=== PATIENT | male | born 1965 | race Two or more races ===

== ENCOUNTER 2020-01-20 12:37 | Outpatient (CLI) | payer OTHER | END 2020-01-20 12:38 | disposition home or self-care (01) | LOC: RAD 12:37 | PROVIDERS: ATTEND Orthopaedic Surgery | DX: M25.552 Pain in left hip (principal) ==

== ENCOUNTER 2020-01-20 13:14 | Outpatient (CLI) | payer OTHER | END 2020-01-20 13:41 | disposition home or self-care (01) | LOC: LAB 13:14 | DX: N20.0 Calculus of kidney (principal) ==

== ENCOUNTER 2020-01-20 15:12 | Inpatient (IN) | payer OTHER ==
[~2020-01-20] VITALS: Ht 177.8 cm; Wt 98.0 kg
[2020-01-27] MEDS ORDERED: HYDROCHLOROTH12.5 MG PO (10:40)
[2020-01-27] MEDS ORDERED: ATACAND16 MG PO (10:40)
[2020-01-27] MEDS ORDERED: TOPROL XL25 M1 PO (10:40)
[2020-01-27] MEDS ORDERED: CABERGOLINE0.5 MG PO (10:41)
[2020-01-27] MEDS ORDERED: TESTOSTERONE IM (10:43)
[2020-02-05] MEDS ORDERED: PROTONIX40 MG PO (14:04)
[2020-02-09] MEDS ORDERED: XARELTO10 M1 (15:16)
== END 2020-02-11 10:56 | DRG 470 ==
LOC: SURH 02-09 07:00 → O/R 02-09 11:07 → SURG 02-09 11:07
PROVIDERS: ADMIT Orthopaedic Surgery; ATTEND Orthopaedic Surgery
PROC: 0SRB0JZ Replacement of Left Hip Joint with Synthetic Substitute, Open Approach (ICD-10-PCS; principal; 2020-02-09 07:00)
DX: M16.12 Unilateral primary osteoarthritis, left hip (principal); D62 Acute posthemorrhagic anemia; I10 Essential (primary) hypertension

== ENCOUNTER 2020-01-22 07:39 | Outpatient (CLI) | payer OTHER | END 2020-01-22 07:52 | disposition home or self-care (01) | LOC: TOM 07:39 | PROVIDERS: ATTEND Internal Medicine Gastroenterology | DX: R10.84 Generalized abdominal pain (principal); M16.12 Unilateral primary osteoarthritis, left hip ==

== ENCOUNTER 2020-01-23 07:20 | Outpatient (CLI) | payer OTHER | END 2020-01-23 07:33 | disposition home or self-care (01) | LOC: LAB 07:20 | PROVIDERS: ATTEND Orthopaedic Surgery | DX: R10.84 Generalized abdominal pain (principal); E03.8 Other specified hypothyroidism; E78.49 Other hyperlipidemia; K92.1 Melena; D64.89 Other specified anemias; E88.89 Other specified metabolic disorders; D68.8 Other specified coagulation defects; N39.0 Urinary tract infection, site not specified; Z22.322 Carrier or suspected carrier of Methicillin resistant Staphylococcus aureus; E55.9 Vitamin D deficiency, unspecified ==

== ENCOUNTER 2020-01-27 07:50 | Outpatient (CLI) | payer OTHER ==
[2020-01-27] MEDS ORDERED: HYDROCHLOROTH12.5 MG PO (10:40)
[2020-01-27] MEDS ORDERED: TOPROL XL25 M1 PO (10:40)
[2020-01-27] MEDS ORDERED: ATACAND16 MG PO (10:40)
[2020-01-27] MEDS ORDERED: CABERGOLINE0.5 MG PO (10:41)
[2020-01-27] MEDS ORDERED: TESTOSTERONE IM (10:43)
== END 2020-01-27 08:00 | disposition home or self-care (01) ==
LOC: EKG 07:50
PROVIDERS: ATTEND Orthopaedic Surgery
DX: I49.8 Other specified cardiac arrhythmias (principal); I10 Essential (primary) hypertension; Z76.89 Persons encountering health services in other specified circumstances

== ENCOUNTER 2021-09-27 10:22 | Outpatient (CLI) | payer OTHER | END 2021-09-27 10:37 | disposition home or self-care (01) | LOC: SONOGRAMA 10:22 | PROVIDERS: ATTEND Internal Medicine Endocrinology, Diabetes & Metabolism | DX: E04.1 Nontoxic single thyroid nodule (principal) ==

== ENCOUNTER → 2021-09-27 | Outpatient (CLI) | payer OTHER ==
[~2021-09-27] MED LIST: ATACAND16 MG PO; CABERGOLINE0.5 MG PO; HYDROCHLOROTH12.5 MG PO; PROTONIX40 MG PO; TESTOSTERONE IM; TOPROL XL25 M1 PO; XARELTO10 M1
== END | disposition home or self-care (01) ==
LOC: NUCLEAR 08:00
DX: I51.7 Cardiomegaly (principal)

== ENCOUNTER 2021-11-13 06:00 | Day surgery (SDC) | payer OTHER ==
[2021-11-13] MEDS ORDERED: PERCOCET 5-3251 EACH PO (08:42)
[2021-11-13] MEDS ORDERED: RECTICARE30 GM TOP (08:43)
== END 2021-11-13 14:30 | disposition home or self-care (01) ==
LOC: CIR.AMB 06:00
PROVIDERS: ATTEND Surgery
DX: K62.82 Dysplasia of anus (principal); K64.2 Third degree hemorrhoids; I10 Essential (primary) hypertension; G47.33 Obstructive sleep apnea (adult) (pediatric); Z99.89 Dependence on other enabling machines and devices

== ENCOUNTER 2021-11-25 16:23 | Inpatient (IN) | payer OTHER ==
[~2021-11-25] VITALS: Ht 182.9 cm; Wt 94.8 kg
[~2021-11-25 16:23] MED LIST changes: +PERCOCET 5-3251 EACH PO; +RECTICARE30 GM TOP
[2021-11-29] MEDS ORDERED: ULTRACET PO (08:17)
[2021-11-29] MEDS ORDERED: DIALYVITE 800-1 EACH PO (08:17)
[2021-11-29] MEDS ORDERED: INTEGRA F CAPS1 EACH PO (08:17)
[2021-11-29] MEDS ORDERED: COLACE100 MG PO (08:17)
== END 2021-11-29 13:58 | disposition home or self-care (01) | DRG 348 ==
LOC: ER 16:23 → SEC-K 18:52 → SURH 22:03
PROVIDERS: ADMIT Surgery; ATTEND Surgery
PROC: 06LY7CC Occlusion of Hemorrhoidal Plexus with Extraluminal Device, Via Natural or Artificial Opening (ICD-10-PCS; principal; 2021-11-25 18:30)
PROC: 4A12X4Z Monitoring of Cardiac Electrical Activity, External Approach (ICD-10-PCS; 2021-11-26)
DX: K64.2 Third degree hemorrhoids (principal); K62.5 Hemorrhage of anus and rectum; I10 Essential (primary) hypertension; G47.33 Obstructive sleep apnea (adult) (pediatric); Z20.822 Contact with and (suspected) exposure to COVID-19; Z99.89 Dependence on other enabling machines and devices

== ENCOUNTER 2022-12-20 05:57 | Day surgery (SDC) | payer OTHER ==
[~2022-12-20] VITALS: Ht 175.3 cm; Wt 96.2 kg
[~2022-12-20 05:57] MED LIST changes: +ALDACTONE25 MG PO; +ANDRODERM1 EAC1 TD; +COLACE100 MG PO; +DIALYVITE 800-1 EACH PO; +ENTRESTO 49 MG1 EACH PO; +FARXIGA10 MG PO; +INTEGRA F CAPS1 EACH PO; +ULTRACET PO
[2022-12-20] MEDS ORDERED: TYLENOL ARTHRI650 MG PO (09:59)
[2022-12-20] MEDS ORDERED: TRAMADOL HCL50 MG PO (09:59)
[2022-12-20] MEDS ORDERED: KETO10TA2 PO (09:59)
[2022-12-20] MEDS ORDERED: MIRALAX17 GM PO (09:59)
== END 2022-12-20 16:25 | disposition home or self-care (01) ==
LOC: CIR.AMB 05:57
PROVIDERS: ATTEND Surgery
DX: K42.0 Umbilical hernia with obstruction, without gangrene (principal); I10 Essential (primary) hypertension; Z20.822 Contact with and (suspected) exposure to COVID-19
CPT/HCPCS: 49594; C1781

== ENCOUNTER 2023-03-14 17:52 | Emergency (ER) | payer OTHER ==
[~2023-03-14] VITALS: Ht 175.3 cm; Wt 95.3 kg
[~2023-03-14 17:52] MED LIST changes: +KETO10TA2 PO; +MIRALAX17 GM PO; +TRAMADOL HCL50 MG PO; +TYLENOL ARTHRI650 MG PO
== END 2023-03-14 23:40 | disposition home or self-care (01) ==
LOC: ER 17:52
DX: R30.0 Dysuria (principal); R53.81 Other malaise; Z91.018 Allergy to other foods

== ENCOUNTER 2023-04-11 13:59 | Emergency (ER) | payer OTHER ==
[~2023-04-11] VITALS: Ht 175.3 cm; Wt 95.3 kg
== END 2023-04-11 17:50 | disposition home or self-care (01) ==
LOC: ER 14:00
DX: N39.0 Urinary tract infection, site not specified (principal); Z91.018 Allergy to other foods

== ENCOUNTER 2024-12-17 23:59 | Emergency (ER) | payer OTHER ==
[~2024-12-17] VITALS: Ht 177.8 cm; Wt 95.3 kg
[2024-12-18] MEDS ORDERED: ACETAMINOPHEN 500 MG GEL..CAP PO STA (01:29)
[2024-12-18] MEDS ORDERED: 0.9 % SODIUM CHLORIDE 1,000 ML IV STA (01:29)
[2024-12-18] MEDS ORDERED: CIPROFLOXACIN IN 5 % DEXTROSE 400 MG/200 ML PIGGYBAG IV STA (01:30)
[2024-12-18] MEDS ORDERED: ACETAMINOPHEN 500 MG GEL..CAP PO ONE (01:37)
[2024-12-18] MEDS ORDERED: CIPROFLOXACIN IN 5 % DEXTROSE 400 MG/200 ML PIGGYBAG IV ONE (01:37)
[2024-12-18 02:19] LABS: BASO % 0.3 % (0.1-1.2); HEMATOCRIT 37.7 % (40.1-51.0); HEMOGLOBIN 12.8 g/dL (13.7-17.5); LYMPH # 0.87 (1.18-3.74); LYMPH % 5.9 % (19.3-53.1); MEAN CORPUSCULAR HEMOGLOBIN 30.5 pg (25.6-32.2); MONO # 0.96 (0.24-0.82); MONO % 6.5 % (4.7-12.5); NEUT # 12.65 (1.56-6.13); NEUT % 86.1 % (34.0-71.1); PLATELET COUNT 153 K/uL (163-369); RED BLOOD COUNT 4.19 M/uL (4.63-6.08); RED CELL DISTRIBUTION WIDTH 13.8 % (11.6-14.4)
[2024-12-18 03:03] LABS: ALBUMIN 3.6 gm/dL (3.4-5.0); BILIRUBIN TOTAL 2.37 mg/dL (0.3-1.2); CALCIUM 8.9 mg/dL (8.5-10.1); CREATININE SERUM 0.79 mg/dL (0.70-1.30); GFR 99.71; GLOBULINA 3.2 G/DL (2.4-3.5); POTASSIUM 4.01 mEq/L (3.5-5.1); TOTAL PROTEIN 6.8 gm/dL (6.4-8.2)
[2024-12-18 03:06] LABS: PROSTATIC SPECIFIC ANTIGEN 55.9 NG/ML (0.010-4.00)
[2024-12-18 03:52] LABS: URINE APPEARANCE Cloudy; URINE BILIRRUBIN Small (NEGATIVE); URINE BLOOD Moderate; URINE COLOR Orange; URINE GLUCOSE Negative (NEGATIVE); URINE KETONE Trace (NEGATIVE); URINE LEUKOCYTE Moderate; URINE NITRATE Positive
[2024-12-18 03:55] LABS: URINE BACTERIA 446.7 uL (0.0-1933); URINE CAST 3.53 uL (0.0-1.40); URINE EPITHELIAL CELLS 12.1 uL (0.0-38.8); URINE RBC 32.5 uL (0.0-20.8); URINE WBC 1015.5 uL (0.0-23.2)
[2024-12-18 04:08] LABS: URINE MUCUS MODERATE; URINE PROTEIN 100 (NEGATIVE)
== END 2024-12-18 04:47 | disposition home or self-care (01) ==
LOC: ER 23:59
DX: N40.1 Benign prostatic hyperplasia with lower urinary tract symptoms (principal); N39.0 Urinary tract infection, site not specified; R30.0 Dysuria; Z91.018 Allergy to other foods; I10 Essential (primary) hypertension